=== PATIENT | female | born 2000 | race Hispanic/Latino ===

== ENCOUNTER 2024-03-31 23:12 | Day surgery (SDC) | payer OTHER, SELFPAY ==
[2024-03-31] MEDS ORDERED: Metoclopramide HCl 10 MG (2 mL) VIAL ONE (23:44)
[2024-03-31] MEDS ORDERED: Famotidine/PF 20 mg/2ml Vial ONE (23:45)
[2024-04-01 00:28] LABS: #Basophils 0.03 10x3/uL (0.0-0.2); #Eosinophils 0.18 10x3/uL (0.0-0.5); #Monocytes 0.69 10x3/uL (0.0-1.1); #Neutrophils 9.08 10x3/uL (1.5-8.4); %Basophils 0.2 % (0.0-2.0); %Eosinophils 1.4 % (0.0-6.0); %Monocytes 5.4 % (0.0-10.0); %Neutrophils 71.1 % (40.0-75.0); Hematocrit 32.5 % (34.9-44.5); Hemoglobin 11.2 g/dL (12.0-15.5); Mean Corpuscular HGB CONC 34.5 g/dL (32.0-36.0); Mean Corpuscular Hemoglobin 32.1 pg (27.0-33.0); Mean Corpuscular Volume 93.1 fL (81.6-98.3); Mean Platelet Volume 10.3 fL (7.4-10.4); Platelet Count 231 10x3/uL (150-450); Red Blood Cell (RBC) Count 3.49 10x6/uL (3.90-5.03); White Blood Cell (WBC) Count 12.8 10x3/uL (3.5-10.5)
[2024-04-01 00:42] LABS: Prothrombin Time 10.9 sec (9.5-12.1)
[2024-04-01 00:45] LABS: Lipase 11 U/L (8-78); Magnesium 1.5 mg/dL (1.6-2.6)
[2024-04-01 01:01] LABS: Bilirubin Neg (Negative); Blood, Urine 25 (Negative); Glucose, Urine (Dipstick) Normal (Negative); Ketone, Urine 150 mg/dL (Negative); Leukocyte 100 (Negative); Nitrite Positive (Negative); Protein, Urine (Dipstick) 30 mg/dl (Neg-Trace)
[2024-04-01 01:08] LABS: Clarity Slightly Cloudy (Clear)
[2024-04-01 01:10] LABS: Bacteria/HPF 4+ HPF (None Seen); CAUTI Indications for Culture Pelvic or flank pain; Squamous Epithelial 0-3 HPF (0-3)
[2024-04-01 01:12] LABS: Urine Culture Reflex Yes Yes
[2024-04-01] MEDS ORDERED: cefTRIAXone (ROCEPHIN) 1 GM VIAL ONE (01:14)
[2024-04-01 01:17] LABS: ALT (SGPT) 19 U/L (8-55); AST (SGOT) 20 U/L (5-34); Albumin 2.9 g/dL (3.5-5.0); Alkaline Phosphatase 73 U/L (40-110); Anion Gap 16 mmol/L (10-20); BUN (Urea Nitrogen) 7 mg/dL (7.0-18.7); Bilirubin, Total 0.6 mg/dL (0.2-1.2); Calc. Creatinine Clearance 0 mL/min (70-130); Calcium 8.3 mg/dL (7.8-10.44); Carbon Dioxide 16 mmol/L (22-29); Chloride 109 mmol/L (98-107); Estimated GFR 130; Glucose 78 mg/dL (70-105); Potassium 3.4 mmol/L (3.5-5.1); Protein, Total 5.9 g/dL (6.0-8.3); Sodium 138 mmol/L (136-145)
[2024-04-01 03:16] VITALS: BMI 24.6
[2024-04-01] MEDS ORDERED: hydrALAZINE 20 MG/ML VIAL SLOW IVP PRN (04:44)
[2024-04-01] MEDS: Acetaminophen 500 MG TAB PO SCH (04:57)
[2024-04-02] MEDS ORDERED: hydrALAZINE 20 MG/ML VIAL SLOW IVP PRN ×2 (09:19)
== END 2024-04-01 05:28 ==
LOC: CSHERS 23:12 → CSHLD/OP 04-01 03:12
PROVIDERS: ATTEND Family Medicine
DX: O23.42 Unspecified infection of urinary tract in pregnancy, second trimester (principal); O99.512 Diseases of the respiratory system complicating pregnancy, second trimester; J45.909 Unspecified asthma, uncomplicated; O21.2 Late vomiting of pregnancy; O44.42 Low lying placenta NOS or without hemorrhage, second trimester; Z3A.23 23 weeks gestation of pregnancy; Z79.899 Other long term (current) drug therapy
CPT/HCPCS: 36415; 76815; 80053; 81001; 83690; 83735; 85025; 85610; 85730; 86850; 86900; 86901; 87077; 87086; 87186; 96361; 96374; 96375; 99283; J0696; J2765; J3490

== ENCOUNTER 2024-04-02 08:50 | Day surgery (SDC) | payer SELFPAY ==
[2024-04-02] MEDS ORDERED: Acetaminophen 500 MG TAB PO SCH (09:45)
[2024-04-02 11:28] LABS: Fetal Membranes Rupture No Membranes Rupture (No Rupture)
[2024-04-02] MEDS: Fluconazole 100 MG TAB PO SCH (12:42)
== END 2024-04-02 12:55 | disposition home or self-care (01) ==
LOC: CSHLD/OP 08:50
PROVIDERS: ATTEND Obstetrics & Gynecology
DX: O46.92 Antepartum hemorrhage, unspecified, second trimester (principal); O23.42 Unspecified infection of urinary tract in pregnancy, second trimester; O98.812 Other maternal infectious and parasitic diseases complicating pregnancy, second trimester; B37.49 Other urogenital candidiasis; Z3A.23 23 weeks gestation of pregnancy; Z79.2 Long term (current) use of antibiotics; Z79.899 Other long term (current) drug therapy
CPT/HCPCS: 84112; 87480; 87491; 87510; 87591; 87660; 99285

== ENCOUNTER 2024-04-16 23:58 | Day surgery (SDC) | payer SELFPAY ==
[2024-04-17 00:31] LABS: #Basophils 0.03 10x3/uL (0.0-0.2); #Eosinophils 0.42 10x3/uL (0.0-0.5); #Monocytes 0.74 10x3/uL (0.0-1.1); #Neutrophils 8.54 10x3/uL (1.5-8.4); %Basophils 0.2 % (0.0-2.0); %Eosinophils 3.1 % (0.0-6.0); %Lymphocytes 28.3 % (18.0-47.0); %Monocytes 5.4 % (0.0-10.0); %Neutrophils 62.7 % (40.0-75.0); Hematocrit 37.3 % (34.9-44.5); Hemoglobin 12.9 g/dL (12.0-15.5); Mean Corpuscular HGB CONC 34.6 g/dL (32.0-36.0); Mean Corpuscular Hemoglobin 32.3 pg (27.0-33.0); Mean Corpuscular Volume 93.3 fL (81.6-98.3); Mean Platelet Volume 11.1 fL (7.4-10.4); Platelet Count 237 10x3/uL (150-450); RBC Distribution Width 12.8 % (11.5-14.5); White Blood Cell (WBC) Count 13.63 10x3/uL (3.5-10.5)
[2024-04-17 00:38] LABS: ALT (SGPT) 14 U/L (8-55); AST (SGOT) 15 U/L (5-34); Albumin 3.3 g/dL (3.5-5.0); Alkaline Phosphatase 83 U/L (40-110); Anion Gap 13 mmol/L (10-20); BUN (Urea Nitrogen) 4 mg/dL (7.0-18.7); Bilirubin, Total 0.4 mg/dL (0.2-1.2); Calc. Creatinine Clearance 0 mL/min (70-130); Calcium 8.8 mg/dL (7.8-10.44); Carbon Dioxide 18 mmol/L (22-29); Chloride 110 mmol/L (98-107); Estimated GFR 132; Globulin 2.9 g/dL (2.4-3.5); Glucose 73 mg/dL (70-105); Potassium 3.8 mmol/L (3.5-5.1); Protein, Total 6.2 g/dL (6.0-8.3); Sodium 137 mmol/L (136-145)
== END 2024-04-17 00:10 | disposition home or self-care (01) ==
LOC: CSHLD/OP 23:58
PROVIDERS: ATTEND Family Medicine
DX: O99.619 Diseases of the digestive system complicating pregnancy, unspecified trimester (principal); K92.0 Hematemesis; O99.891 Other specified diseases and conditions complicating pregnancy; R06.02 Shortness of breath; Z3A.00 Weeks of gestation of pregnancy not specified
CPT/HCPCS: 80053; 85025; 96360; 99282

== ENCOUNTER 2024-04-17 00:18 | Emergency (ER) | payer SELFPAY ==
[2024-04-17] MEDS ORDERED: Albuterol 2.5 MG (3 mL) NEB ONE ×2 (00:30→00:50)
== END 2024-04-17 01:47 | disposition home or self-care (01) ==
LOC: CSHERS 00:18
DX: O99.891 Other specified diseases and conditions complicating pregnancy (principal); J45.901 Unspecified asthma with (acute) exacerbation; Z3A.25 25 weeks gestation of pregnancy
CPT/HCPCS: 94640; 94760; J7611